=== PATIENT | female | born 1990 | race Caucasian/White ===

== ENCOUNTER 2020-07-13 19:15 | Observation (INO) | payer MEDICAID ==
[~2020-07-13] VITALS: Ht 154.9 cm; Wt 86.2 kg
[2020-07-13] MEDS ORDERED: PNV1TABL76 MT (20:16)
== END 2020-07-13 20:30 | disposition home or self-care (01) ==
LOC: 8 EST LDRP 19:15
PROVIDERS: ADMIT Obstetrics & Gynecology; ATTEND Obstetrics & Gynecology
DX: O62.9 Abnormality of forces of labor, unspecified (principal); Z3A.37 37 weeks gestation of pregnancy
CPT/HCPCS: 59025; G0378

== ENCOUNTER 2020-07-14 01:25 | Observation (INO) | payer MEDICAID ==
[~2020-07-14] VITALS: Ht 132.1 cm; Wt 87.5 kg
[~2020-07-14 01:25] MED LIST: PNV1TABL76 MT
[2020-07-14] MEDS ORDERED: DEXT 5%/LACTATED RINGERS 1,000 ML IV SCH (02:15)
[2020-07-14] MEDS ORDERED: ONDANSETRON HCL 4MG/2ML INJ IV NR (02:15)
[2020-07-14] MEDS ORDERED: ACETAMINOPHEN 500MG TABLET PO NR (02:45)
== END 2020-07-14 04:30 | disposition home or self-care (01) ==
LOC: 8 EST LDRP 01:25
PROVIDERS: ADMIT Obstetrics & Gynecology; ATTEND Obstetrics & Gynecology
DX: O62.9 Abnormality of forces of labor, unspecified (principal); Z3A.37 37 weeks gestation of pregnancy
CPT/HCPCS: 59025; 96361; 96374; G0378; J2405; 96360; 99281

== ENCOUNTER 2020-08-02 23:10 | Inpatient (IN) | payer MEDICAID ==
[~2020-08-02] VITALS: Ht 149.9 cm; Wt 89.8 kg
[2020-08-03] VITALS (8 sets, daily range): BP systolic 97–119; BP diastolic 62–83
[2020-08-03] MEDS ORDERED: LIDOCAINE HCL 1% 20ML VIAL (Pyxis) INJ INFIL SCH
[2020-08-03] MEDS ORDERED: LACTATED RINGERS 1,000 ML IV SCH
[2020-08-03] MEDS ORDERED: BUTORPHANOL TARTRATE 2 MG/ML VIAL IV PRN
[2020-08-03] MEDS ORDERED: MISOPROSTOL 100MCG TABLET VG SCH
[2020-08-03] MEDS ORDERED: CARBOPROST TROMETHAMINE 250 MCG/ML AMPUL IM PRN
[2020-08-03] MEDS ORDERED: METHYLERGONOVINE MALEATE 0.2 MG/ML IM PRN
[2020-08-03] MEDS ORDERED: NALOXONE HCL 0.4 MG/ML 1ML VIAL IM PRN
[2020-08-03] MEDS ORDERED: PENICILLIN G POTASSIUM 5 MMU in DEXT 5% WATER 100 ML IV SCH ×2
[2020-08-03 00:19] LABS: EOSINOPHILS % 0.7 % (0.0-5.0); HEMATOCRIT. 36.5 % (36.0-48.0); HEMOGLOBIN. 12.3 g/dL (12.0-16.0); LYMPHOCYTES % 15.1 % (20.0-50.0); MEAN CORPUSCULAR HEMOGLOBIN 26.8 pg (28.0-32.0); MEAN CORPUSCULAR VOLUME 79.3 fL (81.0-99.0); MEAN PLATELET VOLUME 8.5 fl (7.4-10.4); MONOCYTES % 6.4 % (2.0-8.0); NEUTROPHILS % 76.8 % (40.0-76.0); PLATELET 271 x1000/uL (130-400)
[2020-08-03 00:29] LABS: INR 0.9; PARTIAL THROMBOPLASTIN TIME 22.9 sec (23.4-31.0); PROTHROMBIN TIME 9.9 sec (9.6-11.0)
[2020-08-03 00:58] LABS: HEPATITIS B SURFACE ANTIGEN NEGATIVE
[2020-08-03] MEDS ORDERED: RHO(D) IMMUNE GLOBULIN 300 MCG/SYR IM PRN (01:15)
[2020-08-03] MEDS ORDERED: DEXT 5%/LR + PITOCIN 20UNITS/L 1,000 ML IV SCH ×2 (01:15)
[2020-08-03] MEDS ORDERED: IBUPROFEN 400MG TABLET PO PRN (01:15)
[2020-08-03 01:43] LABS: CLARITY URINE CLEAR (CLEAR); COLOR URINE YELLOW (YELLOW); KETONES URINE NEGATIVE (NEGATIVE); LEUKOCYTE ESTERASE URINE NEGATIVE (NEGATIVE); NITRITE URINE NEGATIVE (NEGATIVE); OCCULT BLOOD URINE 3+ (NEGATIVE); PH URINE 5.5 (4.5-8.0); PROTEIN URINE TRACE (NEGATIVE); SPECIFIC GRAVITY URINE 1.021 (1.005-1.030); UROBILINOGEN URINE 0.2 E.U./dL (0.2-1.0)
[2020-08-03 01:52] LABS: *AMPHETAMINES SCREEN URINE NEGATIVE (NEGATIVE)
[2020-08-03 01:53] LABS: *BARBITURATES SCREEN URINE NEGATIVE (NEGATIVE); *BENZODIAZEPINES SCREEN URINE NEGATIVE (NEGATIVE); *COCAINE SCREEN URINE NEGATIVE (NEGATIVE); METHADONE URINE SCREEN NEGATIVE (NEGATIVE); OPIATES URINE SCREEN NEGATIVE (NEGATIVE); PHENCYCLIDINE URINE SCREEN NEGATIVE (NEGATIVE)
[2020-08-03 01:54] LABS: CANNABINOID URINE SCREEN NEGATIVE (NEGATIVE)
[2020-08-03] MEDS: IBUPROFEN 800MG TABLET PO PRN ×3 (02:01→17:21)
[2020-08-03] MEDS ORDERED: PENICILLIN G POTASSIUM 2.5 MMU in DEXTROSE 5% WATER 50 ML IV SCH (04:00)
[2020-08-03 07:36] LABS: BASOPHILS % 0.5 % (0.0-2.0); EOSINOPHILS % 0.1 % (0.0-5.0); HEMATOCRIT. 36.1 % (36.0-48.0); HEMOGLOBIN. 12.1 g/dL (12.0-16.0); LYMPHOCYTES % 10.2 % (20.0-50.0); MEAN CORPUSCULAR HEMOGLOBIN 26.5 pg (28.0-32.0); MEAN PLATELET VOLUME 8.7 fl (7.4-10.4); MONOCYTES % 4.7 % (2.0-8.0); NEUTROPHILS % 84.5 % (40.0-76.0); PLATELET 254 x1000/uL (130-400); RED BLOOD CELL COUNT 4.57 mill/uL (4.2-5.4); RED CELL DISTRIBUTION WIDTH 14.5 % (11.6-14.6)
[2020-08-04 04:15] VITALS: BP 119/75
[2020-08-04] MEDS: IBUPROFEN 800MG TABLET PO PRN (06:17)
[2020-08-04] MEDS ORDERED: FERR325T6 MT (07:54)
[2020-08-04] MEDS ORDERED: IBUP-2030 PO (07:54)
[2020-08-04 08:00] VITALS: BP 91/58
[2020-08-04] MEDS ORDERED: MEDROXYPROGESTERONE ACETATE 150MG/ML VIAL IM NR (09:00)
== END 2020-08-04 14:00 | disposition home or self-care (01) | DRG 560 ==
LOC: 8 EST LDRP 23:10 → OBSVTOIN 23:10 → 8EST 08-03 02:30
PROVIDERS: ADMIT Obstetrics & Gynecology; ATTEND Obstetrics & Gynecology
PROC: 10D07Z6 Extraction of Products of Conception, Vacuum, Via Natural or Artificial Opening (ICD-10-PCS; principal; 2020-08-03)
DX: O69.81X0 Labor and delivery complicated by cord around neck, without compression, not applicable or unspecified (principal); Z3A.39 39 weeks gestation of pregnancy; Z37.0 Single live birth
CPT/HCPCS: 36415; 80305; 81003; 85025; 86592; 86703; 86762; 86850; 86900; 87340; 99281; G0378; J1050; J2540; J2590; J3490; J7060; J7120

== ENCOUNTER 2022-12-23 17:59 | Emergency (ER) | payer MEDICAID ==
[~2022-12-23] VITALS: Ht 162.6 cm; Wt 100.0 kg
[~2022-12-23 17:59] MED LIST changes: +FERR325T6 MT; +IBUP-2030 PO
[2022-12-23 19:12] LABS: BASOPHILS % 0.7 % (0.0-2.0); EOSINOPHILS % 1.9 % (0.0-5.0); HEMATOCRIT. 42.1 % (36.0-48.0); HEMOGLOBIN. 13.9 g/dL (12.0-16.0); LYMPHOCYTES % 22.2 % (20.0-50.0); MEAN CORPUSCULAR HEMOGLOBIN 26.9 pg (28.0-32.0); MEAN CORPUSCULAR VOLUME 81.4 fL (81.0-99.0); MEAN PLATELET VOLUME 7.2 fl (7.4-10.4); MONOCYTES % 5.7 % (2.0-8.0); NEUTROPHILS % 69.5 % (40.0-76.0); PLATELET 370 x1000/uL (130-400); RED BLOOD CELL COUNT 5.17 mill/uL (4.2-5.4); RED CELL DISTRIBUTION WIDTH 14.3 % (11.6-14.6)
[2022-12-23 19:17] LABS: CHLORIDE 108 mEq/L (98-107)
[2022-12-23 19:28] LABS: HCG SCREEN NEGATIVE
[2022-12-23] MEDS ORDERED: IBUP-2029 MT (21:37)
[2022-12-23 21:59] VITALS: BP 124/77
== END 2022-12-23 22:00 | disposition home or self-care (01) ==
LOC: ER 17:59
DX: R07.89 Other chest pain (principal)
CPT/HCPCS: 36415; 71045; 80053; 81025; 84703; 85025; 93005; 99285